=== PATIENT | female | born 1935 | race Caucasian/White ===

== ENCOUNTER 2016-07-21 08:03 | Inpatient (IN) | payer MEDICARE, OTHER ==
[~2016-07-21] VITALS: Ht 165.1 cm; Wt 80.2 kg
[~2016-07-21 08:03] MED LIST: AMOX1TAB64 PO; ASPI-650 PO; BISA10SU65 PR; CARV3.1212 PO; CEFD300C2 PO; FURO-93 PO; INSU100V8 SQ; LEVO25TA2 PO; POTA20TA14 PO
[2016-07-21] MEDS ORDERED: ATROPINE SYRINGE 0.1 MG/ML, 10ML ONE (08:26)
[2016-07-21] MEDS ORDERED: TRAM50TA2 PO (08:50)
[2016-07-21] MEDS ORDERED: ISOS20TA3 PO (08:50)
[2016-07-21] MEDS ORDERED: DONE5TAB14 PO (08:50)
[2016-07-21 08:59] LABS: ASPARTATE AMINO TRANSFERASE 33 U/L (15-37); BLOOD UREA NITROGEN 55 mg/dL (7-18)
[2016-07-21 09:06] LABS: IS PT STATUS REG ER OR PRE ER? YES
[2016-07-21] MEDS ORDERED: SODIUM BICARB 8.4%, 50ML SYRINGE ONE (09:14)
[2016-07-21] MEDS ORDERED: DEXTROSE 50%, 50ML SYRINGE ONE (09:14)
[2016-07-21] MEDS ORDERED: CALCIUM CHLORIDE 10%, 10ML SYR ONE (09:15)
[2016-07-21] MEDS ORDERED: SODIUM POLYSTYRENE SULFONATE ORAL SUSP ONE ×2 (09:15→09:42)
[2016-07-21] MEDS ORDERED: INSULIN REGULAR 100 UNITS/ML, 3ML VIAL ONE (09:16)
[2016-07-21] MEDS ORDERED: DEXTROSE 50%, 50ML SYRINGE IVPush ONE ×2 (09:30→17:00)
[2016-07-21] MEDS ORDERED: SODIUM POLY SULFONATE UDC 15 GM/60 ML PO ONE (09:30)
[2016-07-21] MEDS ORDERED: CALCIUM CHLORIDE 10%, 10ML SYR IVPush ONE (09:30)
[2016-07-21] MEDS ORDERED: INSULIN REGULAR 100 UNITS/ML, 3ML VIAL IVPush ONE (09:30)
[2016-07-21] MEDS ORDERED: SODIUM BICARB 8.4%, 50ML SYRINGE IVPush ONE (09:30)
[2016-07-21] MEDS ORDERED: SODIUM CHLORIDE 0.9% 1,000ML IVBOLUS ONE (09:30)
[2016-07-21] MEDS ORDERED: SODIUM CHLORIDE 0.9% 1,000 ML IV SCH (12:05)
[2016-07-21 12:55] LABS: BLOOD UREA NITROGEN 53 mg/dL (7-18)
[2016-07-21] MEDS ORDERED: FENTANYL PF 100 MCG/2ML ONE (13:03)
[2016-07-21] MEDS ORDERED: BIVALIRUDIN 250 MG ONE (13:04)
[2016-07-21] MEDS ORDERED: TICAGRELOR 90 MG TABLET ONE (13:04)
[2016-07-21] MEDS ORDERED: VERAPAMIL 2.5 MG/ML, 2ML ONE (13:04)
[2016-07-21] MEDS ORDERED: NITROGLYCERIN 5 MG/ML, 10ML ONE (13:04)
[2016-07-21] MEDS ORDERED: HEPARIN 1,000 UNITS/ML, 10ML ONE (13:04)
[2016-07-21] MEDS ORDERED: MIDAZOLAM 1 MG/ML, 5ML ONE (13:04)
[2016-07-21] MEDS ORDERED: LIDOCAINE 2%, 20ML ONE ×2 (13:05→14:14)
[2016-07-21] MEDS ORDERED: ONDANSETRON 2MG/ML, 2ML ONE (13:18)
[2016-07-21 13:27] LABS: IS PT STATUS REG ER OR PRE ER? NO
[2016-07-21] MEDS ORDERED: CEFAZOLIN PMX 1GM/50ML 50 ML ONE (13:57)
[2016-07-21] MEDS ORDERED: CEFAZOLIN 1,000 MG ONE (13:57)
[2016-07-21] MEDS ORDERED: LEVOTHYROXINE 100 MCG INJ IVPush SCH (14:00)
[2016-07-21] MEDS ORDERED: CEFAZOLIN PMX 1GM/50ML 50 ML IVPB SCH (16:00)
[2016-07-21] MEDS: INSULIN REGULAR 100 UNITS/ML, 3ML VIAL SQ-INSULIN SCH ×2 (16:00→21:00)
[2016-07-21 16:30] VITALS: BP 117/64
[2016-07-21 18:57] LABS: IS PT STATUS REG ER OR PRE ER? NO
[2016-07-21 19:15] VITALS: BP 98/62
[2016-07-22] MEDS ORDERED: ACETAMINOPHEN 325 MG TABLET PO ONE
[2016-07-22] MEDS: SODIUM CHLORIDE FLUSH 10ML SYR IVF SCH ×3 (00:15→20:01)
[2016-07-22 01:36] VITALS: BP 85/54
[2016-07-22 02:05] VITALS: BP 101/66
[2016-07-22 05:27] LABS: BLOOD UREA NITROGEN 45 mg/dL (7-18)
[2016-07-22 05:35] LABS: IS PT STATUS REG ER OR PRE ER? NO
[2016-07-22] MEDS: LEVOTHYROXINE 100 MCG TABLET PO SCH (05:47)
[2016-07-22 07:53] VITALS: BP 108/70
[2016-07-22] MEDS: INSULIN REGULAR 100 UNITS/ML, 3ML VIAL SQ-INSULIN SCH ×4 (08:55→20:35)
[2016-07-22] MEDS: SODIUM CHLORIDE 0.9% 1,000 ML IV SCH ×2 (13:52→20:35)
[2016-07-22 14:42] VITALS: BP 112/69
[2016-07-22 15:19] VITALS: BP 127/73
[2016-07-22 19:40] VITALS: BP 95/56
[2016-07-23 02:17] VITALS: BP 115/70
[2016-07-23] MEDS: SODIUM CHLORIDE 0.9% 1,000 ML IV SCH ×3 (03:10→15:22)
[2016-07-23] MEDS: LEVOTHYROXINE 100 MCG TABLET PO SCH (06:12)
[2016-07-23 06:57] VITALS: BP 118/71
[2016-07-23] MEDS: SODIUM CHLORIDE FLUSH 10ML SYR IVF SCH ×2 (08:27→19:56)
[2016-07-23] MEDS: INSULIN REGULAR 100 UNITS/ML, 3ML VIAL SQ-INSULIN SCH ×4 (08:27→19:56)
[2016-07-23 12:39] VITALS: BP 110/67
[2016-07-23] MEDS ORDERED: CEFAZOLIN PMX 1GM/50ML 50 ML IVPB ONE (15:30)
[2016-07-23] MEDS: CARVEDILOL 3.125 MG TABLET PO SCH (17:38)
[2016-07-23 17:39] VITALS: BP 93/66
[2016-07-23] MEDS ORDERED: CARVEDILOL 3.125 MG TABLET PO SCH (18:00)
[2016-07-23 19:53] VITALS: BP 117/74
[2016-07-24 02:09] VITALS: BP 109/65
[2016-07-24] MEDS: CARVEDILOL 3.125 MG TABLET PO SCH ×2 (06:00→17:40)
[2016-07-24 06:49] VITALS: BP 91/52
[2016-07-24 06:54] LABS: ASPARTATE AMINO TRANSFERASE 34 U/L (15-37); BLOOD UREA NITROGEN 36 mg/dL (7-18)
[2016-07-24] MEDS: INSULIN REGULAR 100 UNITS/ML, 3ML VIAL SQ-INSULIN SCH ×4 (07:00→20:47)
[2016-07-24] MEDS ORDERED: MIDAZOLAM 1 MG/ML, 5ML ONE (07:27)
[2016-07-24] MEDS ORDERED: FENTANYL PF 100 MCG/2ML ONE (07:27)
[2016-07-24] MEDS ORDERED: CEFAZOLIN PMX 1GM/50ML 0 ML ONE (07:27)
[2016-07-24] MEDS ORDERED: CEFAZOLIN 1,000 MG ONE (07:28)
[2016-07-24] MEDS ORDERED: LIDOCAINE 2%, 20ML ONE (07:28)
[2016-07-24] MEDS: LEVOTHYROXINE 100 MCG TABLET PO SCH (08:13)
[2016-07-24] MEDS: SODIUM CHLORIDE FLUSH 10ML SYR IVF SCH ×2 (08:13→20:48)
[2016-07-24] MEDS ORDERED: SODIUM CHLORIDE 0.9% 1,000 ML IV SCH (12:05)
[2016-07-24 13:03] VITALS: BP 100/62
[2016-07-24] MEDS ORDERED: LEVOTHYROXINE 100 MCG INJ IVPush ONE (17:00)
[2016-07-24 17:40] VITALS: BP 116/68
[2016-07-24 20:11] VITALS: BP 109/69
[2016-07-25 02:20] VITALS: BP 95/54
[2016-07-25 05:34] LABS: ASPARTATE AMINO TRANSFERASE 50 U/L (15-37); BLOOD UREA NITROGEN 45 mg/dL (7-18)
[2016-07-25] MEDS: CARVEDILOL 3.125 MG TABLET PO SCH ×2 (06:00→18:34)
[2016-07-25] MEDS: LEVOTHYROXINE 100 MCG TABLET PO SCH (06:03)
[2016-07-25 06:38] VITALS: BP 104/66
[2016-07-25] MEDS: INSULIN REGULAR 100 UNITS/ML, 3ML VIAL SQ-INSULIN SCH ×4 (07:00→20:29)
[2016-07-25] MEDS: SODIUM CHLORIDE FLUSH 10ML SYR IVF SCH ×2 (10:32→20:30)
[2016-07-25 11:52] VITALS: BP 101/58
[2016-07-25 12:54] VITALS: BP 98/60
[2016-07-25] MEDS ORDERED: HEPARIN wt. based STROKE protocol MC PRN (16:30)
[2016-07-25] MEDS ORDERED: DO NOT GIVE XX PRN (16:30)
[2016-07-25 18:35] VITALS: BP 110/67
[2016-07-25 20:00] VITALS: BP 120/69
[2016-07-25] MEDS: HEPARIN 25,000 UNITS/500ML PMX 500 ML IV PRN (20:06)
[2016-07-25 22:11] LABS: OCCBLD OBC PASS
[2016-07-26 02:00] VITALS: BP 97/57
[2016-07-26 02:23] LABS: BLOOD UREA NITROGEN 44 mg/dL (7-18)
[2016-07-26 02:26] LABS: ASPARTATE AMINO TRANSFERASE 52 U/L (15-37)
[2016-07-26 05:39] VITALS: BP 117/72
[2016-07-26] MEDS: CARVEDILOL 3.125 MG TABLET PO SCH ×2 (05:40→18:00)
[2016-07-26] MEDS: LEVOTHYROXINE 100 MCG TABLET PO SCH (05:40)
[2016-07-26] MEDS: INSULIN REGULAR 100 UNITS/ML, 3ML VIAL SQ-INSULIN SCH ×4 (07:00→20:51)
[2016-07-26] MEDS: SODIUM CHLORIDE FLUSH 10ML SYR IVF SCH ×2 (07:58→20:50)
[2016-07-26] MEDS ORDERED: LEVOTHYROXINE 100 MCG INJ IVPush ONE (10:00)
[2016-07-26 10:33] VITALS: BP 103/69
[2016-07-26 15:44] VITALS: BP 100/66
[2016-07-26 18:39] VITALS: BP 92/58
[2016-07-26 20:00] VITALS: BP 107/63
[2016-07-26] MEDS: HEPARIN 25,000 UNITS/500ML PMX 500 ML IV PRN (22:51)
[2016-07-27 02:00] VITALS: BP 101/60
[2016-07-27 05:17] VITALS: BP_SYST 82; BP_SYST 85; BP_DIAS 46; BP_DIAS 48
[2016-07-27] MEDS: CARVEDILOL 3.125 MG TABLET PO SCH ×2 (05:31→18:10)
[2016-07-27 06:00] LABS: BLOOD UREA NITROGEN 46 mg/dL (7-18)
[2016-07-27] MEDS: LEVOTHYROXINE 100 MCG TABLET PO SCH (07:47)
[2016-07-27] MEDS: SODIUM CHLORIDE FLUSH 10ML SYR IVF SCH ×2 (07:48→20:30)
[2016-07-27] MEDS: INSULIN REGULAR 100 UNITS/ML, 3ML VIAL SQ-INSULIN SCH ×4 (07:48→20:30)
[2016-07-27 08:27] VITALS: BP 122/68
[2016-07-27] MEDS ORDERED: LEVOTHYROXINE 100 MCG INJ IVPush ONE (08:30)
[2016-07-27 20:00] VITALS: BP 95/59
[2016-07-28] VITALS (7 sets, daily range): BP systolic 80–130; BP diastolic 48–93
[2016-07-28] MEDS: ACETAMINOPHEN 325 MG TABLET PO PRN ×3 (00:13→17:06)
[2016-07-28 01:47] LABS: BLOOD UREA NITROGEN 44 mg/dL (7-18)
[2016-07-28 02:01] LABS: DIFF TOTAL CELLS COUNTED 100 CELL DIFF
[2016-07-28 02:03] LABS: VERIFY COUNTS? YES
[2016-07-28 02:04] LABS: ANISOCYTOSIS 2+; OVALOCYTES 1+; POLYCHROMASIA 1+
[2016-07-28] MEDS: HEPARIN 25,000 UNITS/500ML PMX 500 ML IV PRN (03:13)
[2016-07-28] MEDS: INSULIN REGULAR 100 UNITS/ML, 3ML VIAL SQ-INSULIN SCH ×4 (07:00→21:00)
[2016-07-28] MEDS ORDERED: MAGNESIUM SULFATE PMX 2GM/50ML 50 ML IV ONE (07:30)
[2016-07-28] MEDS: SODIUM CHLORIDE FLUSH 10ML SYR IVF SCH ×2 (07:45→22:10)
[2016-07-28 08:23] LABS: EPI LOT# 5695218
[2016-07-28 08:40] LABS: PLATELET (PFA) 92 10^3/uL (130-400)
[2016-07-28] MEDS: LEVOTHYROXINE 100 MCG TABLET PO SCH (08:46)
[2016-07-28 09:18] LABS: EPI CARTRIDGE 163 SECONDS (72-193); HCT (PFA) 23.5 % (34.6-47.8)
[2016-07-28] MEDS: CARVEDILOL 3.125 MG TABLET PO SCH (16:58)
[2016-07-28] MEDS: OXYcodone IR 5MG TABLET PO PRN (22:13)
[2016-07-29] VITALS (15 sets, daily range): BP systolic 81–119; BP diastolic 57–74
[2016-07-29 03:25] LABS: ASPARTATE AMINO TRANSFERASE 55 U/L (15-37); BLOOD UREA NITROGEN 46 mg/dL (7-18)
[2016-07-29] MEDS ORDERED: MAGNESIUM SULFATE 1 GM in SODIUM CHLORIDE 0.9% 50 ML IV ONE (04:00)
[2016-07-29] MEDS: CARVEDILOL 3.125 MG TABLET PO SCH ×2 (06:39→18:00)
[2016-07-29] MEDS: LEVOTHYROXINE 100 MCG TABLET PO SCH (06:39)
[2016-07-29] MEDS: INSULIN REGULAR 100 UNITS/ML, 3ML VIAL SQ-INSULIN SCH ×4 (08:16→21:51)
[2016-07-29] MEDS: SODIUM CHLORIDE FLUSH 10ML SYR IVF SCH ×2 (08:53→21:41)
[2016-07-29] MEDS: MAGNESIUM OXIDE 400 MG TABLET PO SCH ×2 (08:53→21:42)
[2016-07-29] MEDS: OXYcodone IR 5MG TABLET PO PRN ×2 (15:14→21:42)
[2016-07-30 00:45] VITALS: BP 93/56
[2016-07-30 01:16] VITALS: BP 93/56
[2016-07-30 02:46] LABS: BLOOD UREA NITROGEN 52 mg/dL (7-18)
[2016-07-30] MEDS: OXYcodone IR 5MG TABLET PO PRN ×3 (03:31→20:33)
[2016-07-30] MEDS: LEVOTHYROXINE 100 MCG TABLET PO SCH (05:41)
[2016-07-30] MEDS: CARVEDILOL 3.125 MG TABLET PO SCH ×2 (05:42→17:42)
[2016-07-30] MEDS: MAGNESIUM OXIDE 400 MG TABLET PO SCH ×2 (08:36→20:23)
[2016-07-30] MEDS: SODIUM BICARBONATE 650 MG TABLET PO SCH ×3 (08:36→17:42)
[2016-07-30] MEDS: INSULIN REGULAR 100 UNITS/ML, 3ML VIAL SQ-INSULIN SCH ×4 (08:36→20:33)
[2016-07-30] MEDS: SODIUM CHLORIDE FLUSH 10ML SYR IVF SCH ×2 (08:37→20:23)
[2016-07-30 08:46] VITALS: BP 137/77
[2016-07-30 13:12] LABS: FACTOR VIII ACTIVITY 342 % (57-163); INTERPRETATION Note (.); VON WILLEBRAND FACT (vWF) ACT 568 % (50-200); VON WILLEBRAND FACTOR (VWF) AG >597 % (50-200)
[2016-07-30 13:51] VITALS: BP 128/82
[2016-07-30 20:45] VITALS: BP 121/78
[2016-07-31 02:06] LABS: F-VIII INH 1:1 MIX SALINE 93.7 sec (Not Estab.); F-VIII INH 1:1 NP MIX 1HR INC 36.6 sec (22.9-30.2); F-VIII INH NP 39.5 sec (22.9-30.2); F-VIII INH aPTT 58.2 sec (22.9-30.2); FACTOR VIII ACTIVITY 346 % (57-163)
[2016-07-31] MEDS: OXYcodone IR 5MG TABLET PO PRN ×3 (02:53→22:03)
[2016-07-31 03:20] VITALS: BP 118/66
[2016-07-31] MEDS: LEVOTHYROXINE 100 MCG TABLET PO SCH (05:04)
[2016-07-31] MEDS: CARVEDILOL 3.125 MG TABLET PO SCH ×2 (05:05→17:45)
[2016-07-31 05:35] LABS: BLOOD UREA NITROGEN 55 mg/dL (7-18)
[2016-07-31 07:39] VITALS: BP 94/54
[2016-07-31] MEDS: INSULIN REGULAR 100 UNITS/ML, 3ML VIAL SQ-INSULIN SCH ×4 (08:20→21:00)
[2016-07-31] MEDS: MAGNESIUM OXIDE 400 MG TABLET PO SCH ×2 (08:20→22:03)
[2016-07-31] MEDS: SODIUM CHLORIDE FLUSH 10ML SYR IVF SCH ×2 (08:20→22:12)
[2016-07-31] MEDS: SODIUM BICARBONATE 650 MG TABLET PO SCH ×3 (09:55→17:45)
[2016-07-31 10:54] VITALS: BP 97/67
[2016-07-31 13:30] VITALS: BP 107/71
[2016-07-31 17:20] VITALS: BP 110/70
[2016-07-31 18:52] VITALS: BP 96/65
[2016-08-01 01:00] VITALS: BP 101/66
[2016-08-01 05:43] LABS: BLOOD UREA NITROGEN 65 mg/dL (7-18)
[2016-08-01] MEDS: OXYcodone IR 5MG TABLET PO PRN ×2 (06:12→13:56)
[2016-08-01] MEDS: CARVEDILOL 3.125 MG TABLET PO SCH ×2 (06:14→17:48)
[2016-08-01] MEDS: LEVOTHYROXINE 100 MCG TABLET PO SCH (06:15)
[2016-08-01 06:26] LABS: DIFF TOTAL CELLS COUNTED 100 CELL DIFF
[2016-08-01 06:41] LABS: VERIFY COUNTS? YES
[2016-08-01] MEDS: INSULIN REGULAR 100 UNITS/ML, 3ML VIAL SQ-INSULIN SCH ×4 (07:00→22:15)
[2016-08-01 08:29] VITALS: BP 99/63
[2016-08-01] MEDS: MAGNESIUM OXIDE 400 MG TABLET PO SCH ×2 (09:49→22:15)
[2016-08-01] MEDS: SODIUM CHLORIDE 0.9% 1,000 ML IV SCH ×2 (09:49→19:33)
[2016-08-01] MEDS: SODIUM CHLORIDE FLUSH 10ML SYR IVF SCH ×2 (09:50→22:15)
[2016-08-01] MEDS: SODIUM BICARBONATE 650 MG TABLET PO SCH ×3 (09:50→17:48)
[2016-08-01 13:28] LABS: BLOOD UREA NITROGEN 71 mg/dL (7-18)
[2016-08-01 17:44] VITALS: BP 108/76
[2016-08-01 18:53] VITALS: BP 93/67
[2016-08-02] VITALS (8 sets, daily range): BP systolic 79–135; BP diastolic 43–99
[2016-08-02 02:27] LABS: ASPARTATE AMINO TRANSFERASE 45 U/L (15-37); BLOOD UREA NITROGEN 76 mg/dL (7-18)
[2016-08-02 02:28] LABS: BLOOD UREA NITROGEN 75 mg/dL (7-18)
[2016-08-02] MEDS: CARVEDILOL 3.125 MG TABLET PO SCH (05:17)
[2016-08-02] MEDS: LEVOTHYROXINE 100 MCG TABLET PO SCH (05:17)
[2016-08-02] MEDS: INSULIN REGULAR 100 UNITS/ML, 3ML VIAL SQ-INSULIN SCH ×4 (07:00→20:56)
[2016-08-02] MEDS ORDERED: SODIUM CHLORIDE 0.9%, 500ML IVBOLUS ONE (07:30)
[2016-08-02] MEDS: SODIUM CHLORIDE FLUSH 10ML SYR IVF SCH ×2 (07:43→20:56)
[2016-08-02] MEDS: MAGNESIUM OXIDE 400 MG TABLET PO SCH ×2 (07:56→20:56)
[2016-08-02] MEDS: SODIUM BICARBONATE 650 MG TABLET PO SCH ×3 (07:57→16:21)
[2016-08-02] MEDS ORDERED: ACETAMINOPHEN 325 MG TABLET PO ONE (09:00)
[2016-08-02] MEDS ORDERED: DIPHENHYDRAMINE 12.5MG/5ML ORAL SOL PO ONE (09:00)
[2016-08-02] MEDS ORDERED: ONDANSETRON 2MG/ML, 2ML IVPush PRN (10:00)
[2016-08-02 22:06] LABS: DILUTE PROTHROMBIN TIME (DPT) 34.8 sec (0.0-55.0); LUPUS REFLEX INTERPRETATION Comment: (.); PTT-LA 38.3 sec (0.0-43.6)
[2016-08-03 01:02] VITALS: BP 96/66
[2016-08-03] MEDS: LEVOTHYROXINE 100 MCG TABLET PO SCH (05:41)
[2016-08-03] MEDS: OXYcodone IR 5MG TABLET PO PRN (05:41)
[2016-08-03] MEDS: INSULIN REGULAR 100 UNITS/ML, 3ML VIAL SQ-INSULIN SCH (07:00)
[2016-08-03] MEDS: SODIUM BICARBONATE 650 MG TABLET PO SCH (08:26)
[2016-08-03] MEDS: SODIUM CHLORIDE FLUSH 10ML SYR IVF SCH (09:29)
[2016-08-03] MEDS: MAGNESIUM OXIDE 400 MG TABLET PO SCH (09:29)
[2016-08-03 09:37] LABS: BLOOD UREA NITROGEN 93 mg/dL (7-18)
[2016-08-03 09:41] LABS: ASPARTATE AMINO TRANSFERASE 52 U/L (15-37)
[2016-08-03] MEDS ORDERED: VANCOMYCIN PER PHARMACY MC PRN (10:30)
[2016-08-03] MEDS ORDERED: PHARMACY MAY ADJ FOR RENAL FX MC PRN (10:30)
[2016-08-03] MEDS ORDERED: PIPERACILLIN/TAZO/PMX 3.375GM 50 ML IV SCH (10:30)
[2016-08-03] MEDS ORDERED: VANCOMYCIN 1,600 MG in SODIUM CHLORIDE 0.9% 250 ML IV ONE (11:00)
[2016-08-03] MEDS ORDERED: SODIUM BICARBONATE 650 MG TABLET PO SCH (12:00)
[2016-08-03] MEDS ORDERED: morphine SULFATE 125 MG in SODIUM CHLORIDE 0.9% 237.5 ML IV PRN (14:14)
[2016-08-03] MEDS ORDERED: SCOPOLAMINE PATCH, 1.5MG PATCH.TD72 TD PRN ×2 (14:30)
[2016-08-03] MEDS ORDERED: MORPHINE SULFATE 4 MG/ML, 1ML IVPush PRN ×2 (14:30)
[2016-08-03] MEDS ORDERED: ATROPINE OPHTH SOLN 1%, 5ML BC PRN (14:30)
[2016-08-03] MEDS: LORazepam 2 MG/ML, 1ML IVPush PRN ×2 (14:35→16:04)
[2016-08-05 16:06] LABS: APTT 25.4 sec (.); PROTHROMBIN TIME 10.7 sec (.)
== END 2016-08-03 19:12 | disposition expired | DRG 242 ==
LOC: ED 09:15 → EDIP 10:22 → 5SO 11:23 → 3NW 08-01 20:25
PROVIDERS: ADMIT Internal Medicine Cardiovascular Disease; ATTEND Internal Medicine Cardiovascular Disease
PROC: 0JH606Z Insertion of Pacemaker, Dual Chamber into Chest Subcutaneous Tissue and Fascia, Open Approach (ICD-10-PCS; principal; 2016-07-21)
PROC: 02H63JZ Insertion of Pacemaker Lead into Right Atrium, Percutaneous Approach (ICD-10-PCS; 2016-07-21)
PROC: 02HK3JZ Insertion of Pacemaker Lead into Right Ventricle, Percutaneous Approach (ICD-10-PCS; 2016-07-21)
PROC: 5A2204Z Restoration of Cardiac Rhythm, Single (ICD-10-PCS; 2016-07-21)
PROC: 30233N1 Transfusion of Nonautologous Red Blood Cells into Peripheral Vein, Percutaneous Approach (ICD-10-PCS; 2016-07-28)
PROC: 30233N1 Transfusion of Nonautologous Red Blood Cells into Peripheral Vein, Percutaneous Approach (ICD-10-PCS; 2016-07-29)
PROC: 30233N1 Transfusion of Nonautologous Red Blood Cells into Peripheral Vein, Percutaneous Approach (ICD-10-PCS; 2016-08-02)
DX: R00.1 Bradycardia, unspecified (principal); E43 Unspecified severe protein-calorie malnutrition; I50.43 Acute on chronic combined systolic (congestive) and diastolic (congestive) heart failure; G93.41 Metabolic encephalopathy; J96.01 Acute respiratory failure with hypoxia; I82.B12 Acute embolism and thrombosis of left subclavian vein; I13.2 Hypertensive heart and chronic kidney disease with heart failure and with stage 5 chronic kidney disease, or end stage renal disease; N17.9 Acute kidney failure, unspecified; E87.2 Acidosis; K51.90 Ulcerative colitis, unspecified, without complications; N18.5 Chronic kidney disease, stage 5; D68.9 Coagulation defect, unspecified; E87.1 Hypo-osmolality and hyponatremia; I42.9 Cardiomyopathy, unspecified; E11.22 Type 2 diabetes mellitus with diabetic chronic kidney disease; Z66 Do not resuscitate; D64.9 Anemia, unspecified; E83.42 Hypomagnesemia; Z51.5 Encounter for palliative care; E03.9 Hypothyroidism, unspecified; E87.5 Hyperkalemia; F03.90 Unspecified dementia, unspecified severity, without behavioral disturbance, psychotic disturbance, mood disturbance, and anxiety; J44.9 Chronic obstructive pulmonary disease, unspecified; E11.649 Type 2 diabetes mellitus with hypoglycemia without coma; D69.6 Thrombocytopenia, unspecified; I25.10 Atherosclerotic heart disease of native coronary artery without angina pectoris; Z91.040 Latex allergy status; I25.2 Old myocardial infarction; Z86.73 Personal history of transient ischemic attack (TIA), and cerebral infarction without residual deficits; Z95.1 Presence of aortocoronary bypass graft; Z90.49 Acquired absence of other specified parts of digestive tract; Z79.4 Long term (current) use of insulin; Z87.891 Personal history of nicotine dependence; Z93.2 Ileostomy status; Z91.19 Patient's noncompliance with other medical treatment and regimen; Z93.3 Colostomy status; Z68.29 Body mass index [BMI] 29.0-29.9, adult; Z87.440 Personal history of urinary (tract) infections; Z90.710 Acquired absence of both cervix and uterus; Z83.3 Family history of diabetes mellitus; Z88.8 Allergy status to other drugs, medicaments and biological substances; S20.219A Contusion of unspecified front wall of thorax, initial encounter
CPT/HCPCS: 33208; 36415; 71010; 71250; 74176; 80048; 80053; 80069; 82088; 82272; 82533; 82607; 82728; 82784; 82947; 82962; 83010; 83540; 83550; 83615; 83735; 83880; 84100; 84132; 84145; 84244; 84443; 84484; 85014; 85018; 85025; 85045; 85049; 85240; 85245; 85246; 85250; 85270; 85280; 85384; 85520; 85576; 85598; 85610; 85613; 85670; 85705; 85730; 85732; 86078; 86146; 86147; 86850; 86880; 86900; 86923; 93005; 93306; 96361; 96374; 96375; C1779; C1785; C1892; J0583; J0690; J1644; J1815; J2250; J2405; J3010; J3475; J3490; J2060; J2270; J7030; J7040; J7050; P9016; P9040; Q0163